=== PATIENT | female | born 1940 | race Native Hawaiian/Other Pacific Islander ===

== ENCOUNTER 2016-12-03 09:46 | Outpatient (CLI) | payer OTHER, BC | END 2016-12-03 19:48 | disposition short-term general hospital (02) | LOC: AMB 09:46 | DX: R41.82 Altered mental status, unspecified (principal); V47.0XXA Car driver injured in collision with fixed or stationary object in nontraffic accident, initial encounter; Y92.524 Gas station as the place of occurrence of the external cause | CPT/HCPCS: A0425; A0427 ==

== ENCOUNTER 2016-12-03 09:47 | Emergency (ER) | payer OTHER, BC ==
[~2016-12-03] VITALS: Ht 172.7 cm; Wt 99.8 kg
[2016-12-03 10:47] LABS: PLATELET COUNT 221 K/uL (152-353)
[2016-12-03 10:53] LABS: SODIUM 140 mmol/L (136-145)
[2016-12-03 12:00] VITALS: BP 139/72; TEMP 98.1
== END 2016-12-03 12:07 | disposition short-term general hospital (02) ==
LOC: ED 09:47
PROVIDERS: Specialist
DX: S39.81XA Other specified injuries of abdomen, initial encounter (principal); R10.84 Generalized abdominal pain; R55 Syncope and collapse; R56.9 Unspecified convulsions; V47.0XXA Car driver injured in collision with fixed or stationary object in nontraffic accident, initial encounter
CPT/HCPCS: 80053; 81000; 83735; 84100; 84484; 85027; 96374; 99284; J1885

== ENCOUNTER 2016-12-03 12:19 | Outpatient (CLI) | payer OTHER, BC | END 2016-12-03 13:37 | disposition short-term general hospital (02) | LOC: AMB 12:19 | DX: S39.81XA Other specified injuries of abdomen, initial encounter (principal); R10.84 Generalized abdominal pain; R55 Syncope and collapse; R56.9 Unspecified convulsions | CPT/HCPCS: A0425; A0427 ==

== ENCOUNTER 2016-12-22 13:24 | Outpatient (CLI) | payer OTHER, BC | END 2016-12-22 14:30 | disposition home or self-care (01) | LOC: RESP 13:24 | DX: R55 Syncope and collapse (principal) | CPT/HCPCS: 93005 ==

== ENCOUNTER 2017-12-26 12:57 | Outpatient (CLI) | payer OTHER, BC | END 2017-12-26 22:06 | disposition home or self-care (01) | LOC: MRI 12:57 | DX: M54.12 Radiculopathy, cervical region (principal); M25.512 Pain in left shoulder ==

== ENCOUNTER 2019-05-15 08:18 | Outpatient (CLI) | payer OTHER, BC | END 2019-05-15 18:58 | disposition home or self-care (01) | LOC: MAMMO 08:18 | DX: Z12.31 Encounter for screening mammogram for malignant neoplasm of breast (principal); Q82.8 Other specified congenital malformations of skin ==

== ENCOUNTER 2020-04-15 15:00 | Outpatient (CLI) | payer OTHER, BC | END 2020-04-15 20:47 | disposition home or self-care (01) | LOC: RAD 15:00 | DX: Z03.818 Encounter for observation for suspected exposure to other biological agents ruled out (principal) ==

== ENCOUNTER 2020-04-18 08:56 | Outpatient (CLI) | payer OTHER, BC ==
[2020-04-19] MEDS ORDERED: TELMISARTAN40 MG PO (13:31)
[2020-04-19] MEDS ORDERED: EZETIMIBE10 MG PO (13:32)
[2020-04-19] MEDS ORDERED: ZN METHIONAT50 MG PO (13:33)
[2020-04-19] MEDS ORDERED: ALPR0.5T24 PO ×2 (13:34)
[2020-04-19] MEDS ORDERED: PROAIR HFA INH (13:37)
[2020-04-19] MEDS ORDERED: ZITHROMAX500 MG PO (13:41)
[2020-04-19] MEDS ORDERED: HYDR200T3 PO (13:42)
[2020-04-19] MEDS ORDERED: ASA LOW DOSE81 MG PO (13:43)
[2020-04-19] MEDS ORDERED: BAYER ASA325 M1 PO (13:44)
[2020-04-19] MEDS ORDERED: PEPCID40 MG PO (13:44)
[2020-04-19] MEDS ORDERED: ZINC220 MG PO (13:45)
[2020-04-19] MEDS ORDERED: PRED20TA27 PO (13:46)
[2020-04-19] MEDS ORDERED: VIT C PO (13:49)
[2020-04-19] MEDS ORDERED: BUDE1AER5 INH (13:50)
== END 2020-04-18 23:20 | disposition home or self-care (01) ==
LOC: RAD 08:56
DX: J18.9 Pneumonia, unspecified organism (principal)

== ENCOUNTER 2020-04-19 11:20 | Inpatient (IN) | payer OTHER, BC ==
[~2020-04-19] VITALS: Ht 167.6 cm; Wt 87.7 kg
[2020-04-19 11:53] LABS: PLATELET COUNT 181 K/uL (152-353)
[2020-04-19 12:04] VITALS: BP 149/72; TEMP 98.4; Ht 167.6 cm; Wt 87.7 kg
[2020-04-19 12:22] LABS: POTASSIUM 3.3 mmol/L (3.6-5.2)
[2020-04-19] MEDS ORDERED: TELMISARTAN40 MG PO (13:31)
[2020-04-19] MEDS ORDERED: EZETIMIBE10 MG PO (13:32)
[2020-04-19] MEDS ORDERED: ZN METHIONAT50 MG PO (13:33)
[2020-04-19] MEDS ORDERED: ALPR0.5T24 PO ×2 (13:34)
[2020-04-19] MEDS ORDERED: PROAIR HFA INH (13:37)
[2020-04-19] MEDS ORDERED: ZITHROMAX500 MG PO (13:41)
[2020-04-19] MEDS ORDERED: HYDR200T3 PO (13:42)
[2020-04-19] MEDS ORDERED: ASA LOW DOSE81 MG PO (13:43)
[2020-04-19] MEDS ORDERED: PEPCID40 MG PO (13:44)
[2020-04-19] MEDS ORDERED: BAYER ASA325 M1 PO (13:44)
[2020-04-19] MEDS ORDERED: ZINC220 MG PO (13:45)
[2020-04-19] MEDS ORDERED: PRED20TA27 PO (13:46)
[2020-04-19] MEDS ORDERED: VIT C PO (13:49)
[2020-04-19] MEDS ORDERED: BUDE1AER5 INH (13:50)
[2020-04-19 16:00] VITALS: BP 154/86; TEMP 98.7
[2020-04-19 19:48] VITALS: BP 168/87; TEMP 98
[2020-04-20] VITALS (12 sets, daily range): BP systolic 136–182; BP diastolic 69–92; TEMP 98–99.3
[2020-04-20 05:49] LABS: PLATELET COUNT 184 K/uL (152-353)
[2020-04-20 06:00] LABS: POTASSIUM 3.9 mmol/L (3.6-5.2)
[2020-04-20] MEDS ORDERED: TELMISARTAN80 MG PO (07:52)
[2020-04-21 03:34] VITALS: BP 139/58; TEMP 102.8
[2020-04-21 05:12] LABS: PLATELET COUNT 214 K/uL (152-353)
[2020-04-21 06:28] LABS: POTASSIUM 3.4 mmol/L (3.6-5.2)
[2020-04-21 08:00] VITALS: TEMP 100.3
[2020-04-21 12:00] VITALS: BP 129/73; TEMP 99
[2020-04-21 16:00] VITALS: BP 158/78; TEMP 97.7
[2020-04-21 20:00] VITALS: BP 171/84; TEMP 97.9
[2020-04-22] VITALS: BP 121/60; TEMP 97.3
[2020-04-22 04:21] VITALS: BP 143/78; TEMP 98.6
[2020-04-22 05:18] LABS: PLATELET COUNT 220 K/uL (152-353)
[2020-04-22 05:30] LABS: POTASSIUM 3.8 mmol/L (3.6-5.2)
[2020-04-22 08:00] VITALS: BP 147/67; TEMP 97.7
[2020-04-22 12:00] VITALS: BP 162/84; TEMP 98.1
[2020-04-22 16:00] VITALS: BP 183/95; TEMP 97.8
[2020-04-22 20:00] VITALS: BP 159/84; TEMP 97.7
[2020-04-23 00:18] VITALS: BP 176/86; TEMP 97.7
[2020-04-23 04:00] VITALS: BP 160/85; TEMP 98.9
[2020-04-23 05:57] LABS: POTASSIUM 3.3 mmol/L (3.6-5.2)
[2020-04-23 06:00] LABS: PLATELET COUNT 284 K/uL (152-353)
[2020-04-23 08:00] VITALS: BP 169/81; TEMP 98.2
[2020-04-23 12:00] VITALS: BP 132/59; TEMP 98.1
[2020-04-23 16:00] VITALS: BP 109/81; TEMP 98.1
== END 2020-04-23 19:13 | disposition short-term general hospital (02) | DRG 177 ==
LOC: MED/SURG 11:20
PROVIDERS: ADMIT Family Medicine
DX: U07.1 COVID-19 (principal); J18.8 Other pneumonia, unspecified organism; E46 Unspecified protein-calorie malnutrition; E87.1 Hypo-osmolality and hyponatremia; I10 Essential (primary) hypertension; E78.49 Other hyperlipidemia; R06.09 Other forms of dyspnea; F41.8 Other specified anxiety disorders; R09.02 Hypoxemia
CPT/HCPCS: 36415; 36600; 80053; 82728; 82805; 83735; 83880; 84100; 85027; 85379; 86140; 86850; 86900; 86901; 87040; 87070; 87205; 93005; 94667; 94668; 94760; J0456; J1100; J1650; J1885; J2060; J2543; J2930; J3475; P9017; Q9963

== ENCOUNTER 2021-01-16 21:07 | Emergency (ER) | payer BC ==
[~2021-01-16 21:07] MED LIST: ALPR0.5T24 PO; ASA LOW DOSE81 MG PO; BAYER ASA325 M1 PO; BUDE1AER5 INH; EZETIMIBE10 MG PO; HYDR200T3 PO; PEPCID40 MG PO; PRED20TA27 PO; PROAIR HFA INH; TELMISARTAN40 MG PO; TELMISARTAN80 MG PO; VIT C PO; ZINC220 MG PO; ZITHROMAX500 MG PO; ZN METHIONAT50 MG PO
[2021-01-26 07:55] LABS: POTASSIUM 3.9 mmol/L (3.6-5.2)
[2021-01-26 07:56] LABS: PLATELET COUNT 226 K/uL (152-353)
== END 2021-01-17 03:15 | disposition short-term general hospital (02) ==
LOC: ED 21:07
PROVIDERS: Family Medicine
DX: K56.600 Partial intestinal obstruction, unspecified as to cause (principal); N39.0 Urinary tract infection, site not specified
CPT/HCPCS: 36415; 80053; 81000; 85027; 87077; 87086; 87088; 87186; 96360; 96365; 96366; 96372; 96375; 99284; J1885; J1956; J2175; J2550

== ENCOUNTER 2021-04-01 10:39 | Outpatient (CLI) | payer BC | END 2021-04-01 20:36 | disposition home or self-care (01) | LOC: MRI 10:39 | PROVIDERS: ATTEND Neurological Surgery | DX: M47.22 Other spondylosis with radiculopathy, cervical region (principal) ==

== ENCOUNTER 2021-07-09 12:49 | Observation (INO) | payer BC ==
[~2021-07-09] VITALS: Ht 167.6 cm; Wt 85.8 kg
[~2021-07-09 12:49] MED LIST changes: +AZIT250T3 PO; -PROAIR HFA INH; +PROAIR HFA108 MCG/AC INH; -TELMISARTAN80 MG PO; -ZITHROMAX500 MG PO
[2021-07-09 13:23] LABS: POTASSIUM 4.1 mmol/L (3.6-5.2)
[2021-07-09 13:56] LABS: PLATELET COUNT 250 K/uL (152-353)
[2021-07-09 14:58] VITALS: BP 108/44; TEMP 99; Ht 167.6 cm; Wt 85.8 kg
[2021-07-09] MEDS ORDERED: VITAMIN B-121000 MC2 PO (16:27)
[2021-07-09] MEDS ORDERED: VITAMIN D35000 UNI1 PO (16:28)
[2021-07-09] MEDS ORDERED: ELIQUIS5 MG PO (16:29)
[2021-07-09] MEDS ORDERED: MULTIVITAMI1 PO (16:30)
[2021-07-09] MEDS ORDERED: DILTIAZEM HYDR120 MG PO (16:31)
[2021-07-09] MEDS ORDERED: ROSUVASTATIN CA40 MG PO (16:33)
[2021-07-09] MEDS ORDERED: LEVAQUIN250 MG PO (16:34)
[2021-07-09] MEDS ORDERED: BENZONATATE100 MG PO (16:35)
[2021-07-09] MEDS ORDERED: LIRAGLUTIDE 18 MG/3 ML SC (16:37)
[2021-07-09 20:00] VITALS: BP 115/43; TEMP 98.3
[2021-07-10 00:19] VITALS: BP 132/55; TEMP 100.2
[2021-07-10 04:20] VITALS: BP 117/57; TEMP 99
[2021-07-10 08:00] VITALS: BP 110/47; TEMP 98.6
[2021-07-10 08:39] LABS: PLATELET COUNT 186 K/uL (152-353)
[2021-07-10 08:49] LABS: POTASSIUM 3.8 mmol/L (3.6-5.2)
== END 2021-07-10 15:38 | disposition home or self-care (01) ==
LOC: RAD 12:49 → MED/SURG 13:08
PROVIDERS: Nurse Practitioner Family; ADMIT Family Medicine; ATTEND Family Medicine
DX: R10.11 Right upper quadrant pain (principal); J18.8 Other pneumonia, unspecified organism; R05.3 Chronic cough; Z86.16 Personal history of COVID-19; Z87.19 Personal history of other diseases of the digestive system; Z79.899 Other long term (current) drug therapy; R06.02 Shortness of breath
CPT/HCPCS: 36415; 80053; 81000; 83605; 83735; 83880; 84100; 84443; 85027; 85379; 87040; 87070; 87205; 87502; 87635; 94640; 94664; 94760; 96365; 96366; 96367; 99220; G0378; J0456; J2543; Q9963; U0003

== ENCOUNTER 2022-09-28 08:27 | Outpatient (CLI) | payer BC ==
[~2022-09-28 08:27] MED LIST changes: +BENZONATATE100 MG PO; +DILTIAZEM HYDR120 MG PO; +ELIQUIS5 MG PO; +LEVAQUIN250 MG PO; +LIRAGLUTIDE 18 MG/3 ML SC; +MULTIVITAMI1 PO; +ROSUVASTATIN CA40 MG PO; +VITAMIN B-121000 MC2 PO; +VITAMIN D35000 UNI1 PO
[2022-09-28 09:06] LABS: PLATELET COUNT 260 K/uL (152-353)
[2022-09-28 09:24] LABS: POTASSIUM 3.9 mmol/L (3.6-5.2)
== END 2022-09-28 20:20 | disposition home or self-care (01) ==
LOC: LABW 08:27
PROVIDERS: ATTEND Internal Medicine
DX: N18.32 Chronic kidney disease, stage 3b (principal); R53.83 Other fatigue; Z79.899 Other long term (current) drug therapy; E53.8 Deficiency of other specified B group vitamins; R79.89 Other specified abnormal findings of blood chemistry
CPT/HCPCS: 80053; 81002; 82043; 82306; 82330; 82570; 82607; 82728; 82746; 83036; 83540; 83550; 83735; 83970; 84100; 84156; 84439; 84443; 85027; 85652; 86038

== ENCOUNTER 2023-08-18 07:50 | Outpatient (CLI) | payer BC | END 2023-08-18 19:01 | disposition home or self-care (01) | LOC: US 07:50 | PROVIDERS: ATTEND Nurse Practitioner | DX: R10.11 Right upper quadrant pain (principal) ==